=== PATIENT | female | born 1980 | race Caucasian/White ===

== ENCOUNTER 2020-04-03 15:04 | Emergency (ER) | payer BC, OTHER ==
[2020-04-03] MEDS ORDERED: Adacel (T-DAP) 0.5 ML SYRINGE ONE (15:16)
[2020-04-03 16:24] LABS: HIV (1/2) Antibody/Antigen Non-Reactive (NonReactive); HIV 1/2 INDEX 0.12 S/CO (<1.00); Hep C IgG Ab Non-Reactive (NonReactive); Hep C Index 0.04 S/CO (0-0.79)
[2020-04-03 16:41] LABS: HBSAB Concentration 516.83 mIU/mL; Hep B Surf AB Reactive (NonReactive)
== END 2020-04-03 15:40 | disposition home or self-care (01) ==
LOC: ERS 15:04 → EDSTATUS 15:24 → ERS 15:40
DX: S61.233A Puncture wound without foreign body of left middle finger without damage to nail, initial encounter (principal); F41.9 Anxiety disorder, unspecified; Z79.899 Other long term (current) drug therapy; W46.1XXA Contact with contaminated hypodermic needle, initial encounter; Z23 Encounter for immunization
CPT/HCPCS: 36415; 86706; 86803; 87389; 90471; 90715

== ENCOUNTER 2024-11-08 12:22 | Outpatient (CLI) | payer BC ==
[2024-11-08] MEDS ORDERED: Iopamidol 30 ML ONE (12:39)
== END 2024-11-08 12:23 | disposition home or self-care (01) ==
LOC: RAD 12:22
PROVIDERS: ATTEND Obstetrics & Gynecology
DX: Z31.41 Encounter for fertility testing (principal)
CPT/HCPCS: 58340; 74740; Q9967

== ENCOUNTER 2024-11-09 07:29 | Emergency (ER) | payer BC ==
[2024-11-09] MEDS ORDERED: Ketorolac Tromethamine 30 MG (1 mL) VIAL ONE ×2 (07:35→11:02)
[2024-11-09 08:39] LABS: #Basophils 0.03 10x3/uL (0.0-0.2); %Basophils 0.4 % (0.0-1.0); %Eosinophils 2.2 % (0.0-10.0); %Lymphocytes 29.8 % (21.0-51.0); %Neutrophils 61.2 % (42.0-75.0); Hematocrit 36.4 % (36.0-47.0); Hemoglobin 12.3 g/dL (12.0-16.0); Mean Corpuscular HGB CONC 33.8 g/dL (32.0-36.0); Mean Corpuscular Hemoglobin 30.1 pg (27.0-31.0); Mean Corpuscular Volume 89.2 fL (78.0-98.0); Mean Platelet Volume 9.3 fL (7.4-10.4); Platelet Count 317 10x3/uL (130-400); RBC Distribution Width 12.2 % (11.5-14.5); Red Blood Cell (RBC) Count 4.08 mill/uL (4.20-5.40)
[2024-11-09 09:13] LABS: ALT (SGPT) 14 U/L (Less than 34); AST (SGOT) 38 U/L (11-34); Albumin 3.9 g/dL (3.1-4.5); Alkaline Phosphatase 56 U/L (40-110); Anion Gap 15 mmol/L (10-20); BUN (Urea Nitrogen) 18 mg/dL (7.0-18.7); Bilirubin, Total 0.5 mg/dL (0.3-1.2); Calc. Creatinine Clearance 0 mL/min (70-130); Calcium 9.1 mg/dL (7.8-10.44); Carbon Dioxide 21 mmol/L (22-29); Chloride 106 mmol/L (98-107); Estimated GFR 99; Globulin 3.4 g/dL (2.4-3.5); Glucose 88 mg/dL (70-105); Potassium 3.9 mmol/L (3.5-5.1); Protein, Total 7.3 g/dL (6.0-8.3); Sodium 138 mmol/L (136-145)
[2024-11-09 09:16] LABS: Troponin I Less than 0.010 ng/mL (< 0.028)
[2024-11-09 09:19] LABS: BHCG - Serum Negative (NEGATIVE); Pregs Control Background? CLEAR/WHITE (CLR/WHITE); Pregs Control Bar Appear? YES (CONTROL BAR)
[2024-11-09 11:40] LABS: Troponin I Less than 0.010 ng/mL (< 0.028)
== END 2024-11-09 12:20 | disposition home or self-care (01) ==
LOC: ERS 07:29
DX: R07.9 Chest pain, unspecified (principal)
CPT/HCPCS: 36415; 71045; 80053; 84484; 84703; 85025; 85379; 93005; 96372; 96374; J1885

== ENCOUNTER 2025-08-02 23:36 | Emergency (ER) | payer BC ==
[2025-08-02] MEDS ORDERED: Lidocaine 1% w/Epinephrine 1:100K 20 ML VIAL ONE (23:53)
[2025-08-02] MEDS ORDERED: Boostrix 0.5 ML (Tdap) VIAL (>/=7 yrs of age) ONE (23:53)
[2025-08-03] MEDS ORDERED: Bacitracin 1 PK ONE (00:26)
== END 2025-08-03 00:37 | disposition home or self-care (01) ==
LOC: ERS 23:36
DX: S01.551A Open bite of lip, initial encounter (principal); Z23 Encounter for immunization; Z79.899 Other long term (current) drug therapy; W54.0XXA Bitten by dog, initial encounter
CPT/HCPCS: 12013; 90471; 90715